=== PATIENT | male | born 1940 | race Caucasian/White ===

== ENCOUNTER 2017-04-20 09:13 | Day surgery (SDC) | payer MEDICARE ==
[~2017-04-20] VITALS: Ht 363.2 cm; Wt 124.3 kg
[~2017-04-20 09:13] MED LIST: ASPIR 8181 MG PO; CLOPIDOGREL75 MG PO; ENALAPRIL MALEAT5 MG PO; GLIMEPIRIDE4 MG PO; LIPITOR20 MG PO; METOPROLOL SUCC50 MG PO; MULTI VITAMIN1 EACH PO; NITROSTAT0.4 MG SL; PRED FORTE1 ML OPTH; PROSTATE HEALT1 EAC1 PO; SIMBRINZA 1%-0.28 ML OPTH; TIMOLOL MALEATE5 M2 OP
== END 2017-04-20 11:54 | disposition home or self-care (01) ==
LOC: DSVR 09:13 → OPS 09:13 → DS 10:15 → OPS 10:45
PROVIDERS: Ophthalmology
PROC: 08933ZZ Drainage of Left Anterior Chamber, Percutaneous Approach (ICD-10-PCS; principal; 2017-04-20 10:15)
DX: E11.39 Type 2 diabetes mellitus with other diabetic ophthalmic complication (principal); H40.1131 Primary open-angle glaucoma, bilateral, mild stage; I10 Essential (primary) hypertension; E78.00 Pure hypercholesterolemia, unspecified; G47.30 Sleep apnea, unspecified; Z95.5 Presence of coronary angioplasty implant and graft; Z96.653 Presence of artificial knee joint, bilateral; Z97.4 Presence of external hearing-aid; Z98.890 Other specified postprocedural states; Z98.52 Vasectomy status; Z88.5 Allergy status to narcotic agent; Z88.8 Allergy status to other drugs, medicaments and biological substances; Z79.82 Long term (current) use of aspirin; Z79.899 Other long term (current) drug therapy; Z79.02 Long term (current) use of antithrombotics/antiplatelets; Z79.84 Long term (current) use of oral hypoglycemic drugs; Z79.52 Long term (current) use of systemic steroids; Z99.89 Dependence on other enabling machines and devices; Z85.72 Personal history of non-Hodgkin lymphomas
CPT/HCPCS: 00140; J3010